=== PATIENT | female | born 1935 | race Caucasian/White ===

== ENCOUNTER → 2016-12-19 | Outpatient (CLI) | payer MEDICARE, OTHER ==
--- NOTE | 2016-12-19 09:15 | KCIC ---
Ultrasound renal complete Indication: Renal cyst, follow-up. Correlation is made with prior exam from 06/26/2016. The right kidney measures 12.3 x 5.1 x 5.2 centimeters and left kidney measures 10.8 x 4.3 x 4.6 centimeters. There are numerous simple cysts involving bilateral kidneys. The largest on the right is 1.6 x 1.2 x 1.0 centimeters. This is similar to prior exam. Additional smaller cysts measuring approximately 1.1 centimeters are seen, stable. Largest cyst on the left inferiorly measures 1.6 x 1.4 x 1.3 centimeters. This is also similar to prior exam. 1.3 x 1.2 centimeter liver cyst in the right lobe is unchanged from prior. Aorta and IVC are unremarkable. There is moderate postvoid residual bladder volume of 228 mL. Impression: Stable hepatic and renal cysts when compared with exam from 06/26/2016. Electronically signed by: Krishan Duncan MD (Dec 19, 2016 09:14:24)
== END | disposition home or self-care (01) ==
LOC: KCIC US 07:51
PROVIDERS: ATTEND Family Medicine
DX: N28.1 Cyst of kidney, acquired (principal)
CPT/HCPCS: 76770

== ENCOUNTER → 2017-06-05 | Outpatient (CLI) | payer MEDICARE, OTHER ==
--- NOTE | 2017-06-05 13:22 | KCIC ---
Renal ultrasound History:Follow-up renal cysts. Technique: Sonographic imaging of both kidneys. COMPARISON: December 19, 2016. Findings: Aorta: Obscured by bowel gas. Inferior vena cava:Appears patent Right kidney measures 11.7 cm. 14 mm cyst at the lower pole. This is slightly smaller than the prior study, at which time the cyst measured 16 mm. No other cysts are identified on the current exam. Left kidney measures 11.4 cm length. Lower pole lesion measures 18 mm diameter with complex appearance, compatible with a complex cyst, and is slightly larger as on the prior study, at which time it measured 16 mm diameter. No other cysts are currently demonstrated on today's exam.. Urinary bladder: Right or left ureteric jets are not documented during the scan. Incidentally noted is a small hypoechoic lesion of the left liver lobe, measures 14 mm, may represent a cyst. Impression: 1. A single cyst is seen in the lower pole the right kidney, measures slightly smaller than the prior study. 2. A complex solitary cyst is noted lower pole left kidney, measures slightly larger in size.. 3. Small hypoechoic lesion is incidentally noted in the left lobe of the liver, may represent a small cyst, 14 mm diameter. Renal ultrasound follow-up exam could include the liver for follow-up. Electronically signed by: Tyler Molina MD (06/05/2017 1:19 PM) [facility]
== END | disposition home or self-care (01) ==
LOC: KCIC US 10:33
PROVIDERS: ATTEND Urology
DX: N28.1 Cyst of kidney, acquired (principal); R93.41 Abnormal radiologic findings on diagnostic imaging of renal pelvis, ureter, or bladder
CPT/HCPCS: 76770

== ENCOUNTER 2020-01-20 10:35 | Emergency (ER) | payer MEDICARE, OTHER ==
[~2020-01-20] VITALS: Ht 152.4 cm; Wt 85.0 kg
[~2020-01-20 10:35] MED LIST: ALEN35TA11 PO; AMLO10TA8 PO; ASCO500C PO; ATOR40TA59 PO; CARV25TA PO; CELE200C PO; CHOL500021 PO; CYAN100072 PO; CYCL1DRO EACHEYE; DOCU250C8 PO; ESCITALOPRAM OX10 MG PO; FEXO180T16 PO; FURO40TA4 PO; GABA600T7 PO; GLIP5TAB10 PO; ISOS30TA4 PO; LEVO75TA5 PO; MULT-505 PO; NITR0.4T22 SL; OMEG1CAP38 PO; OMEP20CA16 PO; OXYB5TAB10 PO; POTA10TA6 PO; SITA50TA PO; ZOLP10TA PO
--- NOTE | 2020-01-20 10:43 | PHYS DOC ---
Past Medical History Past Medical History HTN, HLD, COPD, MELODIE (previously on CPAP, now on nocturnal O2), GERD, Depression, OA, CKD, DM2, Hypothyroidism Past Surgical History Cholecystectomy, Hysterectomy, Tonsillectomy Smoking Status: Former Smoker Additional Information: Smoke: Quit (1976) ALCOHOL: none Drugs: None General Adult EDM: Chief Complaint: SHOULDER INJURY HPI: HPI: PPE Statement: During the patient's care I used an N95 mask, gloves, and face sheild. HPI: 84-year-old female presents emergency department today after sustaining a mechanical fall. She was walking in her house when she tripped and injured her right shoulder when her right shoulder landed on the table. Otherwise she denies hitting her head or losing consciousness. She denies any symptoms prior to the fall. She denies any other injuries or other pain. The pain in her right shoulder is sharp shooting pain that radiates in both directions. EMS was called, she was in a right sling when she came in. On arrival she has a palpable pulse with normal motor or sensory function of the hand distally. No abrasions or lacerations overlying skin. Nontender elbow wrist distally. The left upper extremity and the remainder of the lower extremities are nontender. Otherwise her head is atraumatic her neck is nontender without any deformities lacerations abrasions. Normal neurologic exam. Review of systems negative for chest pain shortness of breath abdominal pain vomiting fevers chills. All other review of systems negative. ED course: 84-year-old female sustaining mechanical fall with right shoulder pain. X-rays ordered. Patient is in a sling on arrival. X-ray shows comminuted fracture without dislocation. I spoke with Dr. Martinez our orthopedic surgeon who recommends an shoulder immobilizer with follow-up within the next 3 to 5 days. Patient is neurovascularly intact and her pain is well controlled here in the emergency department. She lives in an assisted care facility and lives next to a nurse and reports that she feels comfortable going home and she has people to help take care of her. We will discharge her to follow-up with orthopedic surgery in 3 to 5 days. Return for any worsening symptoms or concerns. Heart Score: Risk Factors: Risk Factors: DM, Current or recent (<one month) smoker, HTN, HLP, family history of CAD, obesity. Risk Scores: Score 0 - 3: 2.5% MACE over next 6 weeks - Discharge Home Score 4 - 6: 20.3% MACE over next 6 weeks - Admit for Clinical Observation Score 7 - 10: 72.7% MACE over next 6 weeks - Early Invasive Strategies Allergies: Allergies: Allergies Coded Allergies Type Severity Reaction Last Updated Verified acetaminophen Allergy Intermediate 01/17/20 Yes atenolol Allergy Intermediate 01/17/20 Yes codeine Allergy Intermediate 01/17/20 Yes lisinopril Allergy Intermediate 01/17/20 Yes morphine Allergy Intermediate 01/17/20 Yes Physical Exam: PE: Constitutional: Well developed, well nourished, no acute distress, non-toxic appearance. [] HENT: Normocephalic, atraumatic, bilateral external ears normal, oropharynx moist, no oral exudates, nose normal. [] Eyes: PERRLA, EOMI, conjunctiva normal, no discharge. [] Neck: Normal range of motion, no tenderness, supple, no stridor. [] Cardiovascular:Heart rate regular rhythm, no murmur [] Lungs & Thorax: Bilateral breath sounds clear to auscultation [] Abdomen: Bowel sounds normal, soft, no tenderness, no masses, no pulsatile masses. [] Skin: Warm, dry, no erythema, no rash. [] Back: No tenderness, no CVA tenderness. [] Extremities: as above. Patient's hips bilaterally are nontender with normal range of motion of the joints without any pain. All extremities are neurovascular intact with palpable pulse and 2-second cap refill. Neurologic: Alert and oriented X 3, normal motor function, normal sensory function, no focal deficits noted. [] Psychologic: Affect normal, judgement normal, mood normal. [] EKG: EKG: [] Radiology/Procedures: Radiology/Procedures: [] Course & Med Decision Making: Course & Med Decision Making Pertinent Labs and Imaging studies reviewed. (See chart for details) [] Dragon Disclaimer: Dragon Disclaimer: This electronic medical record was generated, in whole or in part, using a voice recognition dictation system. Departure Departure Impression: Primary Impression: Closed comminuted fracture of right humerus with routine healing Disposition: HOME, SELF-CARE Condition: STABLE Referrals: ANNA WILDER MD (PCP) Patient Instructions: Humerus Fracture, Treated with Immobilization MONICA STARK MD January 20, 2020 10:43
[2020-01-20] MEDS ORDERED: IV NORMAL SALINE 500ML BAG 500 ML IV ONE (11:15)
[2020-01-20] MEDS: fentaNYL PF VIAL 100 MCG/2 ML VIAL IV PRN ×2 (11:34→13:22)
--- NOTE | 2020-01-20 11:35 | RAD ---
SHOULDER 2+V RIGHT History: Right shoulder pain. Technique: 2 views right shoulder. Comparison: None. Findings: Acute comminuted intra-articular right humeral head fracture. Mild displacement of the fracture fragments. No dislocation. Soft tissues unremarkable. Mild acromioclavicular DJD. Impression: 1. Acute comminuted right humeral head fracture. Electronically signed by: Paulino Gastelum DO (01/20/2020 11:32 AM) [id number]
[2020-01-20 13:06] VITALS: BP 161/63
[2020-01-20] MEDS ORDERED: HYDR-2761 PO (13:27)
[2020-01-20] MEDS ORDERED: POLY17PO29 PO (13:29)
== END 2020-01-20 14:00 | disposition home or self-care (01) ==
LOC: ER 10:35
DX: S42.294A Other nondisplaced fracture of upper end of right humerus, initial encounter for closed fracture (principal); M19.011 Primary osteoarthritis, right shoulder; E11.22 Type 2 diabetes mellitus with diabetic chronic kidney disease; I12.9 Hypertensive chronic kidney disease with stage 1 through stage 4 chronic kidney disease, or unspecified chronic kidney disease; N18.9 Chronic kidney disease, unspecified; K21.9 Gastro-esophageal reflux disease without esophagitis; J44.9 Chronic obstructive pulmonary disease, unspecified; E03.9 Hypothyroidism, unspecified; E78.5 Hyperlipidemia, unspecified; Z87.891 Personal history of nicotine dependence; Z90.710 Acquired absence of both cervix and uterus; W01.0XXA Fall on same level from slipping, tripping and stumbling without subsequent striking against object, initial encounter; Y93.01 Activity, walking, marching and hiking; Y92.89 Other specified places as the place of occurrence of the external cause; Y99.8 Other external cause status; Z88.5 Allergy status to narcotic agent; Z88.6 Allergy status to analgesic agent; Z88.8 Allergy status to other drugs, medicaments and biological substances
CPT/HCPCS: 29105; 73030; 96374; 96376; 99285; J3010; J7040